=== PATIENT | male | born 1940 | race Hispanic/Latino ===

== ENCOUNTER 2017-10-21 11:08 | Day surgery (SDC) | payer OTHER, MEDICARE ==
[2017-10-21] MEDS ORDERED: Ringers Lactate 1,000 ML IV ONE (11:58)
[2017-10-21] MEDS ORDERED: CEFAZOLIN/SWI 1gm 0 GM/0 ML SYR ONE (11:59)
[2017-10-21] MEDS ORDERED: GENTAMICIN 100 MG/100 ML BAG 100 MG/100 ML BAG IV ONE (12:01)
[2017-10-21 12:05] LABS: Urine Appearance CLOUDY; Urine Bilirubin NEGATIVE (NEG); Urine Blood 3+ (NEG); Urine Color RED; Urine Glucose NEGATIVE (NEG); Urine Microscopic Reflex ORDER UMIC; Urine Protein TRACE (NEG); Urine pH 5.5 (5.0-7.0)
[2017-10-21 12:14] LABS: Urine Bacteria <20 /HPF (NONE SEEN); Urine RBC >50 /HPF (NONE SEEN)
[2017-10-21 12:15] LABS: Urine Culture Reflex Order NOT NEEDED; Urine Mucus SLIGHT /HPF (NONE SEEN)
[2017-10-21 12:19] LABS: Absolute Lymphocytes (CBC) 1.8 K/uL (0.7-4.9); Absolute Monocytes 0.3 K/uL (0.1-1.3); Absolute Neutrophil 2.5 K/uL (1.8-8.0); Basophils % 1.3 % (0-1.3); Eosinophils % 5.7 % (0-4.4); Hematocrit 39.8 % (39.6-49.0); Lymphocytes % 36.1 % (15.3-44.8); MCH 29.3 pg (27.0-35.0); MCV 84.9 fL (80-100); MPV 9.2 fL (7.6-11.3); Monocytes % 6.2 % (3.3-12.3); Potassium 4.3 mmol/L (3.5-5.1); RBC Red Blood Cell Count 4.69 M/uL (4.33-5.43)
[2017-10-21 12:38] LABS: Protime INR 0.91
--- NOTE | 2017-10-21 13:06 | RAD REPORT ---
EXAM DESCRIPTION: Momo Fairbanks (2 Views)10/21/2017 12:54 pm CLINICAL HISTORY: Preop for bladder biopsy COMPARISON: 2009 FINDINGS: The lungs appear clear of acute infiltrate. The heart is normal size. Postsurgical change s involve the chest. The aorta is tortuous/ectatic IMPRESSION: No acute abnormalities displayed
[2017-10-21] MEDS ORDERED: LIDOCAINE 2% MPF 5 ML VIAL ONE (13:16)
[2017-10-21] MEDS ORDERED: MIDAZOLAM HCL 2 MG/2 ML INJ ONE (13:16)
[2017-10-21] MEDS ORDERED: PROPOFOL 200 MG/20 ML VIAL IV ONE (13:16)
[2017-10-21] MEDS ORDERED: FENTANYL CITR 100 MCG/2 ML ONE (13:16)
[2017-10-21] MEDS ORDERED: HYDROCODONE/APAP 5/325 MG TAB ONE (15:09)
--- NOTE | 2017-10-21 17:58 | EKG ---
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
== END 2017-10-21 15:59 | disposition home or self-care (01) ==
LOC: OR 11:08
PROVIDERS: ATTEND Urology
PROC: 0VT08ZZ Resection of Prostate, Via Natural or Artificial Opening Endoscopic (ICD-10-PCS; principal; 2017-10-21 12:30)
DX: R31.0 Gross hematuria (principal); I10 Essential (primary) hypertension; N30.41 Irradiation cystitis with hematuria; N39.0 Urinary tract infection, site not specified; N34.2 Other urethritis; N40.1 Benign prostatic hyperplasia with lower urinary tract symptoms; C61 Malignant neoplasm of prostate; R39.12 Poor urinary stream; R97.21 Rising PSA following treatment for malignant neoplasm of prostate
CPT/HCPCS: 36415; 53899; 71046; 80048; 85025; 85610; 85730; 86850; 86900; 86901; 87086; 87088; 88305; 93005; J1580; J2250; J3010; 81003; 81015; J0690

== ENCOUNTER 2017-12-10 21:17 | Emergency (ER) | payer OTHER, MEDICARE ==
[2017-12-10] MEDS ORDERED: LIDOCAINE VISCOUS 2% SOLN 15 ML UDC ONE (23:15)
--- NOTE | 2017-12-10 23:40 | EDPHYS ---
Physician Documentation [facility] Name: Milo Valenzuela Age: 77 yrs Sex: Male : 1940 Arrival Date: 12/10/2017 Time: 21:20 Bed 14 Private MD: William Vicente V ED Physician Travis Shankar HPI: 12/10 22:52 This 77 yrs old Male presents to ER via Ambulatory with complaints of Problem jr8 With Urinary Catheter, bleeding. 22:52 Onset: The symptoms/episode began/occurred acutely, today. Modifying factors: The jr8 symptoms are alleviated by nothing, the symptoms are aggravated by nothing. Associated signs and symptoms: The patient has no apparent associated signs or symptoms. Severity of symptoms: At their worst the symptoms were mild, in the emergency department the symptoms are unchanged. The patient has not experienced similar symptoms in the past. The patient has been recently seen by a physician:. Historical: - Allergies: 21:31 No Known Allergies; aj1 - Home Meds: 21:31 Plavix 75 mg Oral tab 1 tab once daily [Active]; atorvastatin 10 mg oral tab 1 tab once aj1 daily [Active]; metoprolol tartrate 50 mg Oral tab 1 tab once daily [Active]; aspirin 81 mg Oral chew 1 tab once daily [Active]; Centrum Silver 0.4-300-250 mg-mcg-mcg oral tab [Active]; Fish Oil oral oral daily [Active]; - PMHx: 21:31 prostate cancer; Hyperlipidemia; Myocardial infarction; aj1 - PSHx: 21:31 double bypass; cardic stent; Aortic aneurysm repair; Knee surgery; cryosurgery of aj1 prostate; Hernia repair; - Immunization history:: Flu vaccine is up to date. - Social history:: Smoking status: Patient/guardian denies using tobacco. - Ebola Screening: : Patient denies travel to an Ebola-affected area in the 21 days before illness onset. ROS: 22:52 Eyes: Negative for injury, pain, redness, and discharge, ENT: Negative for injury, jr8 pain, and discharge, Neck: Negative for injury, pain, and swelling, Cardiovascular: Negative for chest pain, palpitations, and edema, Respiratory: Negative for shortness of breath, cough, wheezing, and pleuritic chest pain, Abdomen/GI: Negative for abdominal pain, nausea, vomiting, diarrhea, and constipation, Back: Negative for injury and pain, MS/Extremity: Negative for injury and deformity, Skin: Negative for injury, rash, and discoloration, Neuro: Negative for headache, weakness, numbness, tingling, and seizure. 22:52 : Positive for hematuria. Exam: 22:52 Eyes: Pupils equal round and reactive to light, extra-ocular motions intact. Lids and jr8 lashes normal. Conjunctiva and sclera are non-icteric and not injected. Cornea within normal limits. Periorbital areas with no swelling, redness, or edema. ENT: Nares patent. No nasal discharge, no septal abnormalities noted. Tympanic membranes are normal and external auditory canals are clear. Oropharynx with no redness, swelling, or masses, exudates, or evidence of obstruction, uvula midline. Mucous membranes moist. Neck: Trachea midline, no thyromegaly or masses palpated, and no cervical lymphadenopathy. Supple, full range of motion without nuchal rigidity, or vertebral point tenderness. No Meningismus. Cardiovascular: Regular rate and rhythm with a normal S1 and S2. No gallops, murmurs, or rubs. Normal PMI, no JVD. No pulse deficits. Respiratory: Lungs have equal breath sounds bilaterally, clear to auscultation and percussion. No rales, rhonchi or wheezes noted. No increased work of breathing, no retractions or nasal flaring. Abdomen/GI: Soft, non-tender, with normal bowel sounds. No distension or tympany. No guarding or rebound. No evidence of tenderness throughout. Back: No spinal tenderness. No costovertebral tenderness. Full range of motion. Skin: Warm, dry with normal turgor. Normal color with no rashes, no lesions, and no evidence of cellulitis. MS/ Extremity: Pulses equal, no cyanosis. Neurovascular intact. Full, normal range of motion. Neuro: Awake and alert, GCS 15, oriented to person, place, time, and situation. Cranial nerves II-XII grossly intact. Motor strength 5/5 in all extremities. Sensory grossly intact. Cerebellar exam normal. Normal gait. 22:52 : Male external genitalia: normal, a camacho is noted, urine is blood tinged, clots with bleeding around the catheter present at meatus . Vital Signs: 21:31 BP 149 / 66; Pulse 55; Resp 18; Temp 97.2; Pulse Ox 98% on R/A; Weight 73.48 kg (R); aj1 Height 5 ft. 5 in. (165.10 cm) (R); Pain 0/10; 23:04 BP 130 / 60; Pulse 55; Resp 18; Pulse Ox 98% on R/A; jb4 12/11 00:00 BP 141 / 53; Pulse 54; Resp 18; Pulse Ox 99% on R/A; Pain 0/10; lp1 12/10 21:31 Body Mass Index 26.96 (73.48 kg, 165.10 cm) aj1 MDM: 12/10 21:55 Patient medically screened. jr8 22:52 Data reviewed: vital signs, nurses notes. Data interpreted: Pulse oximetry: on room air jr8 is 98 %. Counseling: I had a detailed discussion with the patient and/or guardian regarding: the historical points, exam findings, and any diagnostic results supporting the discharge/admit diagnosis, the need for outpatient follow up, a urologist. ED course: Dr. Lee consulted. Stated to enlarge catheter and tamponade it with 4x4 abutting meatus. Will see him in office tomorrow . 12/10 23:39 Order name: Camacho; Complete Time: 23:41 jr8 Administered Medications: 12/11 00:23 Drug: Viscous Lidocaine Liquid (4 %) 10 ml {Note: Given for insertion of camacho.} Route: lp1 Mucous Membrane; Disposition: 06:51 Co-signature as Attending Physician, Travis Shankar MD I agree with the assessment and avila plan of care. Disposition: 12/10/17 23:40 Discharged to Home. Impression: Other mechanical complication of urinary (indwelling) catheter. - Condition is Stable. - Discharge Instructions: Camacho Catheter Care, Adult. - Prescriptions for Tylenol- Codeine #3 300-30 mg Oral Tablet - take 2 tablets by ORAL route every 6 hours As needed; 12 tablet. - Medication Reconciliation Form, Thank You Letter, Antibiotic Education, Prescription Opioid Use form. - Follow up: Stanford Lee MD; When: Tomorrow; Reason: Recheck today's complaints, Continuance of care, Re-evaluation by your physician. - Problem is new. - Symptoms have improved. Signatures: Vonnie Olivera RN RN aj1 Travis Shankar MD MD cha Pena, Laura RN RN lp1 Dusty Beltran, LEE PA jr8 Corrections: (The following items were deleted from the chart) 00:23 12/10 23:40 12/10/2017 23:40 Discharged to Home. Impression: Other mechanical lp1 complication of urinary (indwelling) catheter. Condition is Stable. Forms are Medication Reconciliation Form, Thank You Letter, Antibiotic Education, Prescription Opioid Use. Follow up: Stanford Lee; When: Tomorrow; Reason: Recheck today's complaints, Continuance of care, Re-evaluation by your physician. Problem is new. Symptoms have improved. jr8
--- NOTE | 2017-12-10 23:40 | ER ---
Nurse's Notes [facility] Name: Milo Valenzuela Age: 77 yrs Sex: Male : 1940 Arrival Date: 12/10/2017 Time: 21:20 Bed 14 Private MD: William Vicente V Diagnosis: Other mechanical complication of urinary (indwelling) catheter Presentation: 12/10 21:21 Presenting complaint: Patient states: They were seen this weekend at [facility] for aj1 urinary retention. They emptied his bladder and discharged him. They returned on Friday for the same issue and had a catheter placed. He is scheduled to have the cathether taken out tomorrow, but today they noticed there was a lot of bleeding from the catheter insertion site. Transition of care: patient was not received from another setting of care. Onset of symptoms was December 10, 2017. Risk Assessment: Do you want to hurt yourself or someone else? Patient reports no desire to harm self or others. Initial Sepsis Screen: Does the patient meet any 2 criteria? No. Patient's initial sepsis screen is negative. Does the patient have a suspected source of infection? No. Patient's initial sepsis screen is negative. Care prior to arrival: None. 21:21 Method Of Arrival: Ambulatory aj1 21:21 Acuity: KYLE 3 aj1 Triage Assessment: 21:31 General: Appears in no apparent distress. comfortable, Behavior is calm, cooperative, aj1 appropriate for age. Pain: Denies pain. Neuro: Level of Consciousness is awake, alert, obeys commands. Cardiovascular: Patient's skin is warm and dry. Respiratory: Airway is patent Respiratory effort is even, unlabored, Respiratory pattern is regular, symmetrical. Historical: - Allergies: 21:31 No Known Allergies; aj1 - Home Meds: 21:31 Plavix 75 mg Oral tab 1 tab once daily [Active]; atorvastatin 10 mg oral tab 1 tab once aj1 daily [Active]; metoprolol tartrate 50 mg Oral tab 1 tab once daily [Active]; aspirin 81 mg Oral chew 1 tab once daily [Active]; Centrum Silver 0.4-300-250 mg-mcg-mcg oral tab [Active]; Fish Oil oral oral daily [Active]; - PMHx: 21:31 prostate cancer; Hyperlipidemia; Myocardial infarction; aj1 - PSHx: 21:31 double bypass; cardic stent; Aortic aneurysm repair; Knee surgery; cryosurgery of aj1 prostate; Hernia repair; - Immunization history:: Flu vaccine is up to date. - Social history:: Smoking status: Patient/guardian denies using tobacco. - Ebola Screening: : Patient denies travel to an Ebola-affected area in the 21 days before illness onset. Screenin:55 Abuse screen: Denies threats or abuse. Nutritional screening: No deficits noted. jb4 Tuberculosis screening: No symptoms or risk factors identified. Fall Risk None identified. Assessment: 21:55 General: Appears in no apparent distress. uncomfortable, Behavior is calm, cooperative, jb4 appropriate for age. Pain: Denies pain. Neuro: Level of Consciousness is awake, alert, obeys commands, Oriented to person, place, time, situation. Cardiovascular: Patient's skin is warm and dry. Respiratory: Airway is patent Respiratory effort is even, unlabored, Respiratory pattern is regular, symmetrical. GI: No signs and/or symptoms were reported involving the gastrointestinal system. : Camacho in place Urine is blood tinged, bloody, Genitalia appear normal. EENT: No signs and/or symptoms were reported regarding the EENT system. Derm: Skin is intact, Skin is normal. Musculoskeletal: Circulation, motion, and sensation intact. 12/11 00:00 Reassessment: Patient appears in no apparent distress at this time. Patient is alert, lp1 oriented x 3, equal unlabored respirations, skin warm/dry/pink. Patient and family aware of need for follow-up with Dr. Lee in AM. Vital Signs: 12/10 21:31 BP 149 / 66; Pulse 55; Resp 18; Temp 97.2; Pulse Ox 98% on R/A; Weight 73.48 kg (R); aj1 Height 5 ft. 5 in. (165.10 cm) (R); Pain 0/10; 23:04 BP 130 / 60; Pulse 55; Resp 18; Pulse Ox 98% on R/A; jb4 12/11 00:00 BP 141 / 53; Pulse 54; Resp 18; Pulse Ox 99% on R/A; Pain 0/10; lp1 12/10 21:31 Body Mass Index 26.96 (73.48 kg, 165.10 cm) [facility] ED Course: 12/10 21:20 Patient arrived in ED. es 21:22 William Vicente MD is Private Physician. es 21:26 Triage completed. aj1 21:31 Arm band placed on Patient placed in an exam room. aj1 21:55 Dusty Beltran PA is PHCP. jr8 21:55 Travis Shankar MD is Attending Physician. jr8 21:55 Patient has correct armband on for positive identification. Bed in low position. Call jb4 light in reach. Side rails up X2. Pulse ox on. NIBP on. 22:58 [place], RN is Primary Nurse. jb4 23:03 Bladder irrigated via Camacho with 500 ml normal saline returned Blood tinged urine jb4 Patient tolerated well. 23:03 Coud inserted, using sterile technique, 14 Fr. Returned bloody urine. To gravity jb4 drainage. 23:30 One-on-one care X 60 minutes. jb4 23:36 Coud removed intact, balloon deflated. jb4 23:37 Coud inserted, using sterile technique, 18 Fr. Returned bloody urine. To gravity jb4 drainage. Per provider after speaking with Dr. Lee, dressing applied to occlude bleeding. 23:39 Stanford Lee MD is Referral Physician. jr8 12/11 00:20 Camacho catheter bag switched to leg bag for discharge. lp1 00:22 No provider procedures requiring assistance completed. Patient did not have IV access lp1 during this emergency room visit. Administered Medications: 00:23 Drug: Viscous Lidocaine Liquid (4 %) 10 ml {Note: Given for insertion of camacho.} Route: lp1 Mucous Membrane; Outcome: 12/10 23:40 Discharge ordered by . jr12/11 00:23 Discharged to home ambulatory, with family. lp1 Condition: good Discharge instructions given to patient, family, Instructed on discharge instructions, follow up and referral plans. medication usage, Demonstrated understanding of instructions, follow-up care, medications, Prescriptions given X 1. 00:23 Patient left the ED. lp1 Signatures: Vonnie Olivera RN RN aj1 Cecilia Amor Laura, RN RN lp1 Dusty Beltran PA PA jr8 [place], RN RN jb4 Corrections: (The following items were deleted from the chart) 12/10 23:38 23:03 Camacho cath inserted, using sterile technique, 14 Fr., by me, balloon inflated, to jb4 gravity drainage, jb4 23:40 23:37 Coud inserted, using sterile technique, 18 Fr. Returned bloody urine. To gravity jb4 drainage. jb4
== END 2017-12-11 00:23 | disposition home or self-care (01) ==
LOC: ER 21:17
DX: T83.098A Other mechanical complication of other urinary catheter, initial encounter (principal); E78.5 Hyperlipidemia, unspecified; I25.2 Old myocardial infarction; Z85.46 Personal history of malignant neoplasm of prostate; Z95.818 Presence of other cardiac implants and grafts; Z79.01 Long term (current) use of anticoagulants; Z79.82 Long term (current) use of aspirin
CPT/HCPCS: 51700; 99284

== ENCOUNTER 2017-12-11 10:00 | Day surgery (SDC) | payer OTHER, MEDICARE ==
--- NOTE | 2017-12-11 11:26 | ER ---
Nurse's Notes [facility] Name: Milo Valenzuela Age: 77 yrs Sex: Male : 1940 Arrival Date: 12/11/2017 Time: 10:05 Bed Waiting Private MD: Stanford Lee A Diagnosis: Hematuria Presentation: 12/11 10:21 Presenting complaint: Patient states: " DR Lee is admitting me because my prostate is ph bleeding again.". Transition of care: patient was not received from another setting of care. Onset of symptoms was December 11, 2017. Risk Assessment: Do you want to hurt yourself or someone else? Patient reports no desire to harm self or others. 10:21 Method Of Arrival: Ambulatory ph 10: Acuity: KYLE 3 ph Historical: - Allergies: 10:24 No Known Allergies; ph - PMHx: 10:24 Hyperlipidemia; Myocardial infarction; Prostate Cancer; ph - PSHx: 10:24 double bypass; cardic stent; Aortic aneurysm repair; Knee surgery; cryosurgery of ph prostate; Hernia repair; Vital Signs: 10:22 BP 129 / 60; Pulse 53; Resp 16; Temp 97.3; Pulse Ox 98% on R/A; Weight 73.48 kg; Height ph 5 ft. 5 in. (165.10 cm); 10:22 Body Mass Index 26.96 (73.48 kg, 165.10 cm) ph ED Course: 10:05 Patient arrived in ED. as 10:05 Stanford Lee MD is Private Physician. as 10:22 Triage completed. ph 10:23 Arm band placed on. ph 11:24 Stanford Lee MD is Hospitalizing Provider. ph Administered Medications: No medications were administered Outcome: 11:25 Decision to Hospitalize by Provider. ph 11:26 Patient left the ED. ph Signatures: Patsy Alcantar Patricia, RN RN ph
[2017-12-11 11:49] LABS: Absolute Lymphocytes (CBC) 1.5 K/uL (0.7-4.9); Absolute Monocytes 0.9 K/uL (0.1-1.3); Absolute Neutrophil 5.1 K/uL (1.8-8.0); Basophils % 0.4 % (0-1.3); Eosinophils % 1.7 % (0-4.4); Lymphocytes % 20.3 % (15.3-44.8); MCH 33.8 pg (27.0-35.0); MCV 98.5 fL (80-100); MPV 9.5 fL (7.6-11.3); Monocytes % 11.3 % (3.3-12.3); RBC Red Blood Cell Count 3.75 M/uL (4.33-5.43)
[2017-12-11 12:04] LABS: BUN Blood Urea Nitrogen 20 mg/dL (7-18); Bicarbonate 28 mmol/L (21-32); Glucose Level 79 mg/dL (74-106); Potassium 4.8 mmol/L (3.5-5.1); Sodium Level 135 mmol/L (136-145)
[2017-12-11] MEDS ORDERED: Ringers Lactate 1,000 ML IV ONE (12:06)
[2017-12-11 12:12] LABS: Protime INR 0.92
[2017-12-11] MEDS ORDERED: PROPOFOL 200 MG/20 ML VIAL IV ONE (13:54)
[2017-12-11] MEDS ORDERED: FENTANYL CITR 100 MCG/2 ML ONE (13:54)
[2017-12-11] MEDS ORDERED: MIDAZOLAM HCL 2 MG/2 ML INJ ONE (13:54)
[2017-12-11] MEDS ORDERED: ONDANSETRON HCL 40 MG/20 ML VIAL ONE (13:55)
[2017-12-11] MEDS ORDERED: LIDOCAINE 2% MPF 5 ML VIAL ONE (13:55)
[2017-12-11] MEDS ORDERED: GENTAMICIN 100 MG/100 ML BAG 100 MG/100 ML BAG IV ONE (14:07)
[2017-12-11] MEDS ORDERED: EPHEDRINE SULF 50 MG/10 ML SYR ONE (14:29)
--- NOTE | 2017-12-11 15:09 | EKG ---
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
[2017-12-11] MEDS: MEPERIDINE HCL 50 MG/ML AMP ONE ×2 (15:10→15:15)
== END 2017-12-11 17:15 | disposition home or self-care (01) ==
LOC: ER 10:00 → ERHOLD 10:02 → UNDOADMIN 10:02 → DS 10:58 → OR 17:15
PROVIDERS: ATTEND Urology
PROC: 0TCB8ZZ Extirpation of Matter from Bladder, Via Natural or Artificial Opening Endoscopic (ICD-10-PCS; principal; 2017-12-11 17:00)
DX: N30.41 Irradiation cystitis with hematuria (principal); N40.1 Benign prostatic hyperplasia with lower urinary tract symptoms; R33.9 Retention of urine, unspecified; I10 Essential (primary) hypertension; I25.10 Atherosclerotic heart disease of native coronary artery without angina pectoris; E78.5 Hyperlipidemia, unspecified; I25.2 Old myocardial infarction; Z85.46 Personal history of malignant neoplasm of prostate; Z79.82 Long term (current) use of aspirin; Z79.02 Long term (current) use of antithrombotics/antiplatelets; Z95.1 Presence of aortocoronary bypass graft; Z95.5 Presence of coronary angioplasty implant and graft; Z87.891 Personal history of nicotine dependence
CPT/HCPCS: 36415; 52001; 80048; 85025; 85610; 85730; 93005; 99281; J1580; J2175; J2405; J3010; J2250